=== PATIENT | male | born 1945 | race Caucasian/White ===

== ENCOUNTER → 2017-09-30 | Outpatient (CLI) | payer OTHER | LOC: BHFA 13:00 | PROVIDERS: ATTEND Internal Medicine Cardiovascular Disease | DX: Z01.818 Encounter for other preprocedural examination (principal); I10 Essential (primary) hypertension ==

== ENCOUNTER → 2017-10-10 | Outpatient (CLI) | payer OTHER | LOC: BHLMT 14:45 | PROVIDERS: ATTEND Internal Medicine Cardiovascular Disease | DX: I25.10 Atherosclerotic heart disease of native coronary artery without angina pectoris (principal) | CPT/HCPCS: 93880-PO ==

== ENCOUNTER 2017-10-16 07:18 | Day surgery (SDC) | payer OTHER ==
[2017-10-16] MEDS ORDERED: NS 1,000 ML IV ONE (07:25)
[2017-10-16] MEDS ORDERED: DIAZEPAM 5 MG TAB PO ONE (07:25)
[2017-10-16] MEDS ORDERED: diphenhydrAMINE 25 MG CAP PO ONE (07:25)
[2017-10-16] MEDS ORDERED: FAMOTIDINE 20 MG TAB PO ONE (07:25)
[2017-10-16] MEDS ORDERED: ASPIRIN EC 325 MG TAB PO ONE (07:25)
--- NOTE | 2017-10-16 07:43 | CPEKG ---
Heart Rate: 78 RR Interval: 769 P-R Interval: 188 QRSD Interval: 84 QT Interval: 380 QTC Interval: 433 P Rosanky: 64 QRS Rosanky: -1 T Wave Rosanky: 47 EKG Severity - NORMAL ECG - EKG Impression: SINUS RHYTHM Electronically Signed By: Lupillo Hand 16-Oct-2017 15:59:13
[2017-10-16 07:57] LABS: PLATELET COUNT 199 10^3/uL (150-400)
[2017-10-16 08:24] LABS: INR 1.01 (0.83-1.16); PROTIME(PATIENT) 13.5 SEC (12.0-15.0)
[2017-10-16] MEDS ORDERED: LIDOCAINE 1% 300 MG/30 ML SDV ONE (08:56)
[2017-10-16] MEDS ORDERED: MIDAZOLAM 2 MG/2 ML VIAL ONE ×2 (08:57→09:45)
[2017-10-16] MEDS ORDERED: HEPARIN 10,000 UNIT/10 ML MDV (1,000 UNIT/ML) ONE (08:57)
[2017-10-16] MEDS ORDERED: VERAPAMIL 5 MG/2 ML VIAL ONE (08:57)
[2017-10-16] MEDS ORDERED: IOPAMIDOL (ISOVUE-370) 150 ML BTL IV ONE (08:57)
[2017-10-16] MEDS ORDERED: fentaNYL 100 MCG/2 ML INJ ONE ×2 (08:57→09:45)
--- NOTE | 2017-10-16 09:01 | PDHPUP ---
History & Physical Update H&P update statement: This history and physical update is based on an assessment of the patient which was completed after admission or registration (within 24 hours), but prior to the surgery/procedure. H&P update: H&P reviewed & patient examined, no change in patient's condition since H&P completed
--- NOTE | 2017-10-16 09:03 | PDPROPOC ---
Sedation Plan of Care Sedation Plan of Care: vital signs stable, mental status noted, patient educated of risks, benefits, alternatives, patient can tolerate sedation ASA Classification: ASA 3 Planned drugs: fentanyl, midazolam Mallampati Score: Class 3 Mallampati Reference Image: Patient passed 3-3-2 rule?: No (pt at increased risk of a sedation complication because of body habitus)
--- NOTE | 2017-10-16 09:38 | PDDXCAT ---
Diagnostic Cath Note - . Date: 10/16/17 Battery Charger: Romelia Indication: High-risk criteria on noninvasive testing (choose option below), other (Positive calcium score and abnormal resting EKG) High-risk criteria on non-invasive testing: high-risk treadmill score (score<=- 11) - Procedure Access: right wrist Procedure: left heart catheterization, coronary angiography, left ventriculogram - Materials Left Heart Cath size: 5F Left Heart Cath materials: standard multipack (JL4, JR4, pigtail), other ( Ultimately an AR1 guiding catheter was used to selectively intubate the RCA.) - Findings-Left Heart Catheterization LM: The left main is short, it is 8mm in size. LAD: The LAD is 4mm in size. There is a 30% lesion of the LAD proximally. No flow limiting disease. ROC III flow. LCX: The Left circumflex is 3.5mm in size. There is a 30% lesion of the proximal left circumflex. No flow limiting obstruction. RCA: The RCA is dominant. It gives rise to the PDA and PLV branches all of which are free of flow limiting obstruction. ROC III flow throughout. EDP: 17mmHg LVEF: 60% Wall motion: No segmental wall motion abnormalities are identified. There is no evidence of stenosis on pull back. There is no desirae aneurysm or dissection. Complications: NONE. Estimated blood loss: <50ml Closure method: TR Band Assessment: The patient has s[place]ogon vessel coronary disease without evidence of flow limiting obstruction, dissection, or thrombus. ROC III flow throughout. Plan: The patient should be treated to achieve a Non-HDL cholesterol of less than 100mg/dL with a statin based regimen. Antiplatelet therapy with Aspirin 81 to 162 mg daily should also be considered. Intervention: NONE.
[2017-10-16] MEDS ORDERED: ONDANSETRON 4 MG/2 ML VIAL IVP PRN (10:21)
[2017-10-16] MEDS ORDERED: HYDROCODONE/APAP 5/325 TAB PO PRN (10:21)
[2017-10-16] MEDS ORDERED: ATROPINE SULFATE 1 MG/10 ML SYR IVP PRN (10:21)
[2017-10-16] MEDS ORDERED: NITROGLYCERIN 0.4 MG BTL SL PRN (10:21)
[2017-10-16] MEDS ORDERED: OXYCODONE/APAP 5/325 TAB PO PRN (10:21)
[2017-10-16] MEDS ORDERED: THIAMINE HCL 100 MG TAB PO SCH (21:00)
[2017-10-16] MEDS ORDERED: CHOLECALCIFEROL VIT D3 1,000 UNITS TAB PO SCH (21:00)
[2017-10-16] MEDS ORDERED: NIACIN 500 MG TAB PO SCH (21:00)
[2017-10-17] MEDS ORDERED: LOSARTAN POTASSIUM 50 MG TAB PO SCH (09:00)
[2017-10-17] MEDS ORDERED: METOPROLOL TARTRATE 25 MG TAB PO SCH (09:00)
[2017-10-17] MEDS ORDERED: HYDROCHLOROTHIAZIDE 12.5 MG CAP PO SCH (09:00)
[2017-10-17] MEDS ORDERED: ASPIRIN 81 MG CHEWABLE TAB PO SCH (09:00)
[2017-10-17] MEDS ORDERED: amLODIPine BESYLATE 5 MG TAB PO SCH (09:00)
== END 2017-10-16 13:50 | disposition home or self-care (01) ==
LOC: FCATH 07:18
PROVIDERS: ATTEND Internal Medicine Cardiovascular Disease
PROC: 4A023N7 Measurement of Cardiac Sampling and Pressure, Left Heart, Percutaneous Approach (ICD-10-PCS; principal; 2017-10-16)
PROC: B2111ZZ Fluoroscopy of Multiple Coronary Arteries using Low Osmolar Contrast (ICD-10-PCS; principal; 2017-10-16)
PROC: B2151ZZ Fluoroscopy of Left Heart using Low Osmolar Contrast (ICD-10-PCS; principal; 2017-10-16)
DX: R94.39 Abnormal result of other cardiovascular function study (principal); R94.31 Abnormal electrocardiogram [ECG] [EKG]; I10 Essential (primary) hypertension; I25.10 Atherosclerotic heart disease of native coronary artery without angina pectoris; E78.2 Mixed hyperlipidemia; E66.9 Obesity, unspecified; Z68.41 Body mass index [BMI] 40.0-44.9, adult; G47.33 Obstructive sleep apnea (adult) (pediatric); M10.9 Gout, unspecified; M25.50 Pain in unspecified joint; Z85.820 Personal history of malignant melanoma of skin; Z82.3 Family history of stroke
CPT/HCPCS: 93005; 93458; C1887; J1644; J2250; J3010; Q9967